=== PATIENT | male | born 1970 | race Caucasian/White ===

== ENCOUNTER → 2019-12-02 | Emergency (ER) | payer OTHER ==
[~2019-12-02] VITALS: Ht 188 cm; Wt 81.6 kg
[~2019-12-02] MED LIST: KETOROLAC TROMETH 60MG/2ML VIAL IM ONE
[2019-12-02 11:01] VITALS: BP 173/100
== END | disposition home or self-care (01) ==
LOC: ER 09:15
DX: R51 Headache (principal); M54.2 Cervicalgia; M79.604 Pain in right leg; I10 Essential (primary) hypertension; F17.210 Nicotine dependence, cigarettes, uncomplicated; V19.9XXA Pedal cyclist (driver) (passenger) injured in unspecified traffic accident, initial encounter; Y93.55 Activity, bike riding; Y92.481 Parking lot as the place of occurrence of the external cause; Y99.8 Other external cause status
CPT/HCPCS: 96372; 99283; J1885

== ENCOUNTER → 2019-12-02 | Emergency (ER) | payer SELFPAY ==
[~2019-12-02] VITALS: Ht 188 cm; Wt 81.6 kg
[~2019-12-02] MED LIST changes: +ASPirin 81 mg TAB PO ONE; -KETOROLAC TROMETH 60MG/2ML VIAL IM ONE; +SODIUM CHLORIDE 0.9% 1,000 ML IV ONE; +cloNIDine HCL 0.1 MG TAB PO ONE
[2019-12-02 04:11] VITALS: BP 169/102
[2019-12-02 04:40] LABS: Basophils # (auto) 0 10 ^3/uL (0-0.2); Basophils % (auto) 0.5 % (0.0-2.0); Eosinophils # (auto) 0 10 ^3/uL (0-0.8); Eosinophils % (auto) 0.1 % (0.0-7.0); Hematocrit 40.4 % (41.0-53.0); Hemoglobin 12.8 g/dL (13.5-17.5); Lymphocytes # (auto) 1.6 10 ^3/uL (0.4-5.4); Lymphocytes % (auto) 19.6 % (10.0-50.0); Mean Corpuscular Hemoglobin 28.9 pg (28.0-32.0); Mean Corpuscular Hgb Conc. 31.6 g/dL (32.0-36.0); Mean Corpuscular Volume 91.5 fL (80.0-100.0); Monocytes # (auto) 0.7 10 ^3/uL (0-1.3); Monocytes % (auto) 9.1 % (0.0-12.0); Neutrophils # (auto) 5.8 10 ^3/uL (1.6-8.6); Neutrophils % (auto) 70.7 % (37.0-80.0); Nucleated Red Blood Cells % 0.1 %; Platelet Count (auto) 247 10^3/uL (140-450); Red Blood Cells 4.42 10^6/uL (4.5-5.90); Red Cell Distribution Width 16.7 % (11.8-14.3); White Blood Cell 8.1 10^3/uL (4.4-10.8)
[2019-12-02 05:09] LABS: Albumin 3.8 g/dL (3.4-5.0); Anion Gap 5 (5-15); Blood Urea Nitrogen 21 mg/dL (7-18); Calcium 8.9 mg/dL (8.5-10.1); Carbon Dioxide 28 mmol/L (21-32); Chloride 108 mmol/L (98-107); Glucose 90 mg/dL (74-106); Magnesium 2.2 mg/dL (1.6-2.6); Potassium 3.5 mmol/L (3.5-5.1); Sodium 141 mmol/L (136-145)
[2019-12-02 05:14] LABS: INR 1.1 (0.9-1.15); Partial Thromboplastin Time 23.4 sec (23.0-31.2)
[2019-12-02 05:17] LABS: Alanine Aminotransferase 37 U/L (16-61); Alkaline Phosphatase 77 U/L (45-117); Aspartate Aminotransferase 28 U/L (15-37); BUN/Creatinine Ratio 26.6; Bilirubin, Total 0.5 mg/dL (0.2-1.0); GFR African American 135 mL/min; GFR Non-African American 111 mL/min; Total Protein 7.4 g/dL (6.4-8.2)
== END | disposition home or self-care (01) ==
LOC: ER 03:43
DX: I10 Essential (primary) hypertension (principal); R07.89 Other chest pain
CPT/HCPCS: 36415; 71045; 73620; 80053; 83735; 84484; 85025; 85379; 85610; 85730